=== PATIENT | female | born 1960 | race Caucasian/White ===

== ENCOUNTER 2023-07-16 07:27 | Day surgery (SDC) | payer OTHER ==
[~2023-07-16] VITALS: Ht 170.2 cm; Wt 62.7 kg
[~2023-07-16 07:27] MED LIST: CAL-CITRATE PL1 EAC2 PO; MULTIPLE VITAM1 EACH PO; OMEGA-3 FISH O1 EAC6 PO; Vitamin B Comple1 EA PO
[2023-07-16] MEDS ORDERED: VALA500 PO ×2 (08:00→08:01)
[2023-07-16 10:31] VITALS: BP 134/84
== END 2023-07-16 10:25 | disposition home or self-care (01) ==
LOC: ORSCSDS 07:27
PROVIDERS: Surgery
PROC: 0DBP8ZX Excision of Rectum, Via Natural or Artificial Opening Endoscopic, Diagnostic (ICD-10-PCS; principal; 2023-07-16 08:45)
DX: Z12.11 Encounter for screening for malignant neoplasm of colon (principal); K63.5 Polyp of colon; K57.30 Diverticulosis of large intestine without perforation or abscess without bleeding; Z87.891 Personal history of nicotine dependence
CPT/HCPCS: 88305; J2704; J7120

== ENCOUNTER 2024-06-14 05:51 | Day surgery (SDC) | payer OTHER ==
[~2024-06-14] VITALS: Ht 166 cm; Wt 64.2 kg
[2024-06-14] VITALS (13 sets, daily range): BP systolic 108–175; BP diastolic 68–85
[~2024-06-14 05:51] MED LIST changes: +IBUP400 PO; +LIVER SUPPORT PO; +VALA500 PO
[2024-06-14] MEDS ORDERED: Dexmedetomidine HCL 200 MCG / 2 ML ONE (06:30)
[2024-06-14] MEDS ORDERED: Bupivacaine 0.5% Inj 10 ML Vial ONE (06:31)
[2024-06-14] MEDS ORDERED: propofoL 100 ML IV ONE (06:31)
[2024-06-14] MEDS ORDERED: Ondansetron HCl 2 MG / ML 2ML Vial ONE ×2 (06:36→07:17)
[2024-06-14] MEDS ORDERED: Ketorolac Tromethamine 30mg Vial ONE (06:36)
[2024-06-14] MEDS ORDERED: Dexamethasone Sod Phos 10 MG/ML 1ML VIAL ONE (06:36)
[2024-06-14] MEDS ORDERED: OxyCODONE HCL 10 MG TABCR PO SCH (06:40)
[2024-06-14] MEDS ORDERED: CeFAZolin Sodium 2,000 MG in NS 100 ML IV SCH ×2 (06:40→16:00)
[2024-06-14] MEDS ORDERED: Tranexamic Acid 1,000 MG in NS 100 ML IV SCH (06:40)
[2024-06-14] MEDS ORDERED: Chlorhexidine Mouth Care 15 ML UDC MT SCH (06:40)
[2024-06-14] MEDS ORDERED: Ropivacaine 0.5% HCl/Pf 123.125 MG,EPINEPHrine HCL 0.25 MG,Ketorolac Tromethamine 15 MG... INFIL SCH (06:40)
[2024-06-14] MEDS ORDERED: Acetaminophen 500 MG Tab PO SCH ×2 (06:40→08:00)
[2024-06-14] MEDS ORDERED: Lactated Ringer's 1,000 ML IV SCH ×2 (06:40→07:55)
--- NOTE | 2024-06-14 06:54 | NUR ---
History, Chart, Medications and Allergies reviewed before start of procedure. Patient confirms NPO status and agrees with scheduled surgery.
[2024-06-14] MEDS ORDERED: CeFAZolin Sodium 2,000 MG VIAL ONE (06:56)
[2024-06-14] MEDS ORDERED: FentaNYL Citrate 50 MCG/ML 2 ML Injection ONE (07:10)
[2024-06-14] MEDS ORDERED: Metoclopramide HCl 5MG / ML 2ML Vial ONE (07:17)
[2024-06-14] MEDS ORDERED: OxyCODONE HCL 5 MG TAB PO PRN ×2 (07:45→07:50)
[2024-06-14] MEDS ORDERED: DiphenhydrAMINE HCL 25 MG Cap PO PRN (07:50)
[2024-06-14] MEDS ORDERED: Promethazine HCl 25 MG Tab PO PRN (07:50)
[2024-06-14] MEDS ORDERED: Prochlorperazine Edisylate 10 mg Vial IV PRN (07:50)
[2024-06-14] MEDS ORDERED: Bisacodyl 10 MG Supp PR PRN (07:50)
[2024-06-14] MEDS ORDERED: Phenylephrine HCl 100 MCG/ML-NS 10MLSYR (1MG/10ML) ONE (07:50)
[2024-06-14] MEDS ORDERED: Metoclopramide HCl 5MG / ML 2ML Vial IV PRN (07:55)
[2024-06-14] MEDS ORDERED: FLU VACC TS2024-25(6MOS UP)/PF 45 MCG/0.5 ML SYRINGE IM PRN (07:55)
[2024-06-14] MEDS ORDERED: HYDROmorphone HCl/Pf 1MG SYR IV PRN (07:55)
[2024-06-14] MEDS ORDERED: Magnesium Hydroxide Conc 10 ML UDC PO PRN (07:55)
[2024-06-14] MEDS ORDERED: Ondansetron HCl 2 MG / ML 2ML Vial IV PRN (08:00)
[2024-06-14] MEDS ORDERED: Vasopressin 20 UNITS/ML 1ML Vial ONE ×2 (08:23→08:40)
[2024-06-14] MEDS ORDERED: ePHEDrine Sulfate 50 MG/ML 1ML Injection ONE (08:49)
[2024-06-14] MEDS ORDERED: Multivitamins/Minerals TAB PO SCH (09:00)
[2024-06-14] MEDS ORDERED: ValACYClovir HCL 500 MG Tab PO SCH (09:00)
[2024-06-14] MEDS ORDERED: Docusate Sodium 100 MG Cap PO SCH (09:00)
--- NOTE | 2024-06-14 10:14 | NUR ---
ARRIVAL TO UNIT AFTER RECEIVING REPORT FROM SUPERVISOR WOOL SHEARING, PATIENT TRANSFERRED TO UNIT VIA BED AT APPROX 1005. PATIENT ALERT AND ORIENTED X4. COMMUNICATING NEEDS EFFECTIVELY. VSS. TOLERATING ROOM AIR, SATs >90%. S/P L MURPHY WITH SPINAL - MINIMAL SENSATION TO BLE BUT IS ABLE TO WIGGLE TOES SOME. PPP. AQUACEL DRESSING C/D/I. COOLING DEVICE IN PLACE. DENIES PAIN. TOLERATING SMALL SIPS OF WATER. LR INFUSING TO GRAVITY THROUGH PIV R WRIST. CALL LIGHT IN REACH. AT BEDSIDE.
[2024-06-14] MEDS ORDERED: Ketorolac Tromethamine 15mg Vial IV SCH (12:00)
--- NOTE | 2024-06-14 17:07 | NUR ---
SHIFT SUMMARY NO ACUTE EVENTS SINCE ARRIVAL TO UNIT. VSS. PATIENT COMMUNICATING NEEDS EFFECTIVELY. S/P L MURPHY WITH SPINAL - MINIMAL SENSATION TO BLE. IS ABLE TO LIFT BLE BUT REPORTS NUMBNESS/TINGLING AND "HEAVINESS." UNABLE TO WORK WITH PHYSICAL THERAPY TODAY. DENIES PAIN. AQUACEL DRESSING C/D/I. MILD NAUSEA AND X1 EPISODE OF EMESIS - IV ZOFRAN ADMINISTERED PER EMAR WITH RELIEF. ABLE TO USE BEDPAN TO VOID. COOLING DEVICE IN PLACE. CALL LIGHT IN REACH. WILL CONTINUE TO MONITOR AND REPORT TO ONCOMING RN.
[2024-06-15 03:52] VITALS: BP 99/68
[2024-06-15 05:03] LABS: BASOPHILS ABSOLUTE AUTO 0.02 K/mm3 (0.00-0.23); BASOPHILS PERCENT AUTO 0 % (0-2); EOSINOPHILS ABSOLUTE AUTO 0.02 K/mm3 (0.00-0.68); EOSINOPHILS PERCENT AUTO 0 % (0-6); Hematocrit 32.6 % (33.0-51.0); Hemoglobin 11.5 g/dL (11.5-16.0); IMMATURE GRAN ABSOLUTE AUTO 0.05 K/mm3 (0.00-0.10); IMMATURE GRAN PERCENT AUTO 0 % (0-1); LYMPHOCYTES ABSOLUTE AUTO 1.26 K/mm3 (0.84-5.20); LYMPHOCYTES PERCENT AUTO 8 % (21-46); MONOCYTES PERCENT AUTO 9 % (4-13); Mean Corpuscular HGB 32.7 pg (26.0-34.0); Mean Corpuscular HGB Conc 35.3 g/dL (31.5-36.5); Mean Corpuscular Volume 93 fL (80-100); Mean Platelet Volume 10.1 fL (9.1-12.4); NEUTROPHILS ABSOLUTE AUTO 12.33 K/mm3 (1.96-9.15); NEUTROPHILS PERCENT AUTO 82 % (41-73); Platelet Count 251 K/mm3 (150-400); RDW Coefficient Variation 12.1 % (11.7-14.2); RDW Standard Deviation 41.1 fL (35.1-46.3); Red Blood Cell Count 3.52 M/mm3 (3.80-5.20); White Blood Cell Count 15.08 K/mm3 (4.00-11.30)
[2024-06-15 05:18] VITALS: BP 122/74
[2024-06-15 05:42] LABS: Bun/Creatinine Ratio 18.7 (12.0-20.0); Calcium, Blood 9.7 mg/dL (8.5-10.1); Creatinine, Blood 0.8 mg/dL (0.40-1.00); Potassium, Blood 4.5 mmol/L (3.5-5.5)
[2024-06-15 07:15] VITALS: BP 133/73
--- NOTE | 2024-06-15 07:30 | NUR ---
SHIFT SUMMARY NOC. PT POD 1 FOR LEFT TOTAL HIP. PT A/O X4, AQUACEL C/D/I. PT MEDICATED FOR PAIN WITH SCHEDULED MEDICATIONS, DENIES NEED FOR OXY. PT DECLINED COLACE. PT AMBULATING TO BR WITH FWW, GB, AND SBA. PT VOIDING URINE AND TOLERATING PO INTAKE. PT MAKES NEEDS KNOWN, CALL LIGHT IN REACH.
[2024-06-15] MEDS ORDERED: Aspirin 81 MG Chew PO SCH (09:00)
[2024-06-15] MEDS ORDERED: ASPI81CH PO (09:10)
--- NOTE | 2024-06-15 09:41 | NUR ---
DISCHARGE SUMMARY PT A/OX4. DWAYNE PO INTAKE WELL. ADEQUATE PAIN CONTROL WITH MEDS. PT HAS VOIDED AND CLEARED BY PHYSICAL THEARPY. PT VERBALIZES UNDERSTANDING OF D/C INST. SENT HOME WITH MARY IBARRA X2. PT TO F/U WITH ORTHO WITHIN 2 WEEKS. PT ESCORTED TO LOBBY IN NO DISTRESS VIA WC.
== END 2024-06-15 09:40 | disposition home or self-care (01) ==
LOC: ORSCMMR 05:51 → ORD 07:30 → ORSCMMR 07:30 → SURS 10:00 → ORSCMMR 06-15 09:40 → ORD 06-21 07:30
PROVIDERS: Orthopaedic Surgery
PROC: 0SRB0JA Replacement of Left Hip Joint with Synthetic Substitute, Uncemented, Open Approach (ICD-10-PCS; principal; 2024-06-14 07:30)
DX: M16.12 Unilateral primary osteoarthritis, left hip (principal); I10 Essential (primary) hypertension; Z87.891 Personal history of nicotine dependence; K21.9 Gastro-esophageal reflux disease without esophagitis; Z79.899 Other long term (current) drug therapy
CPT/HCPCS: 36415; 72170; 80048; 85025; 97110; 97116; 97162; A6010; A9270; C1776; J0171; J0690; J0735; J1100; J1885; J2371; J2405; J2704; J2765; J2795; J3010; J7120